=== PATIENT | male | born 1990 | race Caucasian/White ===

== ENCOUNTER 2025-05-16 08:00 | Emergency (ER) | payer OTHER, SELFPAY ==
[~2025-05-16] VITALS: Ht 172.7 cm; Wt 80.0 kg
[2025-05-16] MEDS ORDERED: IBUP200C25 PO (08:11)
[2025-05-16 10:00] VITALS: BP 123/76; TEMP 96.6; O2SAT 100
== END 2025-05-16 10:15 | disposition home or self-care (01) ==
LOC: M ED 08:00
DX: M25.561 Pain in right knee (principal); X50.0XXA Overexertion from strenuous movement or load, initial encounter; Y92.9 Unspecified place or not applicable; Y93.02 Activity, running; Y99.9 Unspecified external cause status; Z79.1 Long term (current) use of non-steroidal anti-inflammatories (NSAID)